=== PATIENT | male | born 1980 | race Caucasian/White ===

== ENCOUNTER 2022-06-06 12:22 | Emergency (ER) | payer OTHER ==
[2022-06-06 12:34] VITALS: RESP 16
--- NOTE | 2022-06-06 12:58 | ED ---
Fall HPI - General Chief Complaint: Fall Stated Complaint: fall, head injury Time Seen by Provider: 06/06/22 12:40 Source: patient, family, RN notes reviewed Mode of arrival: wheelchair Limitations: no limitations - History of Present Illness Initial Comments: This a 42-year-old male presents emergency Department with chief complaint of fall. Patient states he was proximal 4 feet up on a ladder and he fell backwards then shortly struck his head on. Patient is up-to-date on his tetanus. Patient is abrasion, laceration to his scalp. Patient has no active bleeding. Denies any neck, back pain no lower extremity pain. She has no upper extremity symptoms. Patient denies loss conscious he states he felt dazed does complain of a headache, slight nausea currently no vomiting. Denies any focal weakness. - Related Data Allergies Allergy/AdvReac Type Severity Reaction Status Date / Time No Known Allergies Allergy Verified 06/06/22 12:34 Review of Systems ROS Statement: Those systems with pertinent positive or pertinent negative responses have been documented in the HPI. ROS Other: All systems not noted in ROS Statement are negative. Past Medical History Past Medical History: No Reported History History of Any Multi-Drug Resistant Organisms: None Reported Past Surgical History: No Surgical Hx Reported Past Psychological History: No Psychological Hx Reported Smoking Status: Former smoker Past Alcohol Use History: Occasional Past Drug Use History: None Reported General Exam Limitations: no limitations General appearance: alert, in no apparent distress Head exam: Present: atraumatic, normocephalic. Absent: normal inspection (Posterior scalp abrasion, no deep laceration.) Eye exam: Present: normal appearance, PERRL, EOMI. Absent: scleral icterus, conjunctival injection, periorbital swelling ENT exam: Present: normal exam, normal oropharynx, mucous membranes moist Neck exam: Present: normal inspection, full ROM. Absent: tenderness, meningismus, lymphadenopathy Respiratory exam: Present: normal lung sounds bilaterally. Absent: respiratory distress, wheezes, rales, rhonchi, stridor Cardiovascular Exam: Present: regular rate, normal rhythm, normal heart sounds. Absent: systolic murmur, diastolic murmur, rubs, gallop, clicks Neurological exam: Present: alert, oriented X3 Skin exam: Present: warm, dry, intact, normal color. Absent: rash Course Vital Signs 06/06/22 12:30 Temperature 98 F Pulse Rate 92 Respiratory 16 Rate Blood Pressure 119/71 O2 Sat by Pulse 99 Oximetry - Reevaluation(s) Reevaluation #1: 06/06/22 14:19 I did discuss the case with trauma surgeon at [facility] Dr. Gandhi who accepts transfer. Medical Decision Making - Medical Decision Making 42-year-old male presented emergency department for a fall. CT interpreted by me and radiology shows evidence of skull fracture, subarachnoid hemorrhage. Patient is neurologically intact with GCS 15. Patient will be transferred to [facility] for neurosurgical evaluation. - Lab Data Result diagrams: 06/06/22 14:20 Lab Results 06/06/22 Range/Units 14:20 WBC 15.8 H (3.8-10.6) k/uL RBC 5.39 (4.30-5.90) m/uL Hgb 16.9 (13.0-17.5) gm/dL Hct 47.6 (39.0-53.0) % MCV 88.5 (80.0-100.0) fL MCH 31.4 (25.0-35.0) pg MCHC 35.6 (31.0-37.0) g/dL RDW 11.9 (11.5-15.5) % Plt Count 207 (150-450) k/uL MPV 7.8 Neutrophils % 85 % Lymphocytes % 10 % Monocytes % 4 % Eosinophils % 1 % Basophils % 0 % Neutrophils # 13.5 H (1.3-7.7) k/uL Lymphocytes # 1.5 (1.0-4.8) k/uL Monocytes # 0.6 (0-1.0) k/uL Eosinophils # 0.1 (0-0.7) k/uL Basophils # 0.1 (0-0.2) k/uL Disposition Clinical Impression: Fall, Skull fracture, Subarachnoid hemorrhage Disposition: OTHER INSTITUTION NOT DEFINED Condition: Fair Referrals: Deana Cid DO [Primary Care Provider] - 1-2 days Time of Disposition: 14:11 - Out of Hospital Transfer - Req. Specs Out of Hospital Transfer - Requested Specifics: Other Emergency Center ([facility])
--- NOTE | 2022-06-06 13:32 | CT ---
EXAMINATION TYPE: CT brain cspine wo con CT DLP: 1535.5 mGycm, Automated exposure control for dose reduction was used. DATE OF EXAM: 06/06/2022 1:16 PM COMPARISON: None. CLINICAL INDICATION:Male, 42 years old with history of pain; Fell off ladder, back of head trauma. No LOC TECHNIQUE: Brain: Multiple axial CT images of the brain were obtained without IV contrast. Cspine: Axial CT images from the skull base to the inferior aspect of T2 we obtained without intraven ous contrast. Coronal and sagittal reformatted images were also reviewed. FINDINGS: Brain: Extra-axial spaces: Subtle high density suspected blood products within the sulci most pronounced ant eriorly on sagittal imaging involving the frontal lobe on the right. Ventricular system: Within normal limits Cerebral parenchyma: No acute intraparenchymal hemorrhage or mass effect. The alaniz-white junction is well differentiated. Cerebellum: Unremarkable. Mass effect: No evidence of midline shift. Intracranial vasculature: unremarkable Soft tissues: Left posterior scalp edema. Calvarium/osseous structures: Left posterior occiput fracture without depression. Paranasal sinuses and mastoid air cells: Clear. Visualized orbits: Orbital contents are intact. Cervical spine: Fracture: None. Osseous structures: Unremarkable Vertebral alignment: Within normal limits. Spinal canal/Neural Foramina: No evidence of significant spinal canal narrowing. No evidence for sign ificant neural foraminal stenosis. Neck soft tissues: Prevertebral soft tissues are within normal limits. Other: The airway is patent. The lung apices are clear. IMPRESSION: 1. Left posterior skull fracture with no displacement or depression. There is scattered subtle subar achnoid hemorrhage most pronounced anteriorly. No midline shift. 2. No evidence of cervical spine fracture. 3. Mild left posterior scalp edema.
[2022-06-06] MEDS ORDERED: ONDANSETRON 4 MG/2 ML VIAL IVP STA (14:16)
[2022-06-06] MEDS ORDERED: HYDROmorphone 0.5 MG/0.5 ML SYRINGE IVP STA (14:16)
[2022-06-06 14:23] LABS: Basophils # (A) 0.1 k/uL (0-0.2); Basophils % (A) 0 %; Eosinophils # (A) 0.1 k/uL (0-0.7); Eosinophils % (A) 1 %; HCT 47.6 % (39.0-53.0); HGB 16.9 gm/dL (13.0-17.5); Lymphocytes # (A) 1.5 k/uL (1.0-4.8); Lymphocytes % (A) 10 %; MCH 31.4 pg (25.0-35.0); MCHC 35.6 g/dL (31.0-37.0); MCV 88.5 fL (80.0-100.0); Mean Platelet Volume 7.8; Monocytes # (A) 0.6 k/uL (0-1.0); Monocytes % (A) 4 %; Neutrophils # (A) 13.5 k/uL (1.3-7.7); Neutrophils % (A) 85 %; Platelet Count 207 k/uL (150-450); RBC 5.39 m/uL (4.30-5.90); RDW 11.9 % (11.5-15.5); WBC 15.8 k/uL (3.8-10.6)
[2022-06-06 14:50] VITALS: BP 115/68; PULSE 84; TEMP 98.1
== END 2022-06-06 14:51 | disposition other institution (70) ==
LOC: EC 12:22
DX: S02.91XA Unspecified fracture of skull, initial encounter for closed fracture (principal); I60.9 Nontraumatic subarachnoid hemorrhage, unspecified; Z87.891 Personal history of nicotine dependence; W11.XXXA Fall on and from ladder, initial encounter; Y92.009 Unspecified place in unspecified non-institutional (private) residence as the place of occurrence of the external cause
CPT/HCPCS: 36415; 85025; 72125; 70450; 99284; 96374; 96375; J2405; J1170

== ENCOUNTER → 2022-06-25 | Outpatient (CLI) | payer OTHER ==
--- NOTE | 2022-06-25 14:42 | XR ---
EXAM TYPE: LUMBAR SPINE X RAY SERIES COMPARISON: NONE HISTORY: Pain TECHNIQUE: 3 views are submitted. FINDINGS: Alignment is anatomic. The pedicles are intact. The transverse processes are intact. There is no s pondylolysis or spondylolisthesis. Mild diffuse osteopenia. IMPRESSION: 1. No acute process. I'll diffuse osteopenia.
--- NOTE | 2022-06-25 14:43 | XR ---
EXAMINATION TYPE: XR pelvis AP view DATE OF EXAM: 06/25/2022 COMPARISON: NONE HISTORY: Pain The osseous structures are intact and the joint spaces are preserved. No acute fracture is seen. Vi sualized bowel gas pattern is nonspecific. Calcification left pelvis likely vascular. IMPRESSION: 1. No acute fracture.
== END | disposition home or self-care (01) ==
LOC: RADXRYALE 13:40
PROVIDERS: ATTEND Nurse Practitioner
DX: M85.88 Other specified disorders of bone density and structure, other site (principal)
CPT/HCPCS: 72100; 72170

== ENCOUNTER → 2023-02-05 | Outpatient (CLI) | payer OTHER ==
--- NOTE | 2023-02-05 18:18 | P.SLEEP ---
History of Present Illness DATE: 02/05/2023 CONSULTATION/NEW PATIENT EVALUATION HISTORY OF PRESENT ILLNESS/SLEEP-WAKE EVALUATION: 42 year old gentleman had been evaluated in the sleep center for possible obstructive sleep apnea hypopnea syndrome. SLEEP SCHEDULE: Usually sleep schedule from 10 PM to 6 AM on weekdays and from 11 PM to 9 AM on weekend. FALLING ASLEEP: No problems with falling asleep. DURING SLEEP: Patient snores, wakes up from sleep several times with one episode of nocturia. No history of hypnogogical hallucinations, sleep paralysis, or cataplexy. DURING THE DAY/WAKE STATE: In the morning patient wake up tired, has difficulties to put pretension, has problems with memory and concentration. [place] sleepiness scale is increased to 13. Usually patient doesn't take naps. PAST MEDICAL HISTORY: Hyperlipidemia, status post traumatic brain injury and concussion. PAST SURGICAL HISTORY: None MEDICATIONS: None. SOCIAL HISTORY: Negative for smoking, alcohol consumption occasional. FAMILY HISTORY: Hypertension, stroke. REVIEW OF SYSTEMS: Snoring, awakenings from sleep, sleepiness during the day. No fevers. No double vision. No recent chest pain. No shortness of breath. No abdominal pain. No bleeding episodes. No blood in urine. No seizure episodes. PHYSICAL EXAMINATION: GENERAL: A pleasant patient without any distress. VITAL SIGNS: BP 123/71 , HR 58 , RR 12 , weight 172.4 pounds, height 5 foot 7 inches, body mass index 26.9 . HEENT: PERRLA, EOMI. Evaluation of oropharynx showed tongue protrudes midline, low position of soft palate Mallampati 3. NECK: Supple. No JVD. Thyroid is not palpable. 15.25 inches in circumference. LUNGS: Clear to percussion and to auscultation. Good air exchange. No wheezing or rhonchi. HEART: S1, S2 regular. No murmurs, gallops or rubs. ABDOMEN: Soft and nontender. Bowel sounds are present. No organomegaly appreciated. EXTREMITIES: No clubbing or cyanosis. CRITICAL CARE REGISTERED NURSE: Awake, alert, and oriented x3. Cranial nerves 2 to 7 intact. There is no fasciculation or atrophy noted. No focal deficits observed. ASSESSMENT: 1. Snoring, awakenings from sleep, low position of soft palate Mallampati 3, sleepiness [place] sleepiness scale increased to 13. Obstructive sleep apnea hypopnea syndrome. 2. Hyperlipidemia. 3. Status post traumatic brain injury with concussion in 2021. PLAN: 1. Polysomnography for evaluation of patient's breathing during sleep. 2. Following plan after reading sleep study. 3. Preferable position during sleep on the side. 4. No driving if patient feels any sleepiness. Patient is aware of civil and criminal liability for unsafe driving. 5. Sleep hygiene with regular sleep time for at least 7.5-8 hours. Thank you very much for referring this patient for consultation. Sincerely, Vimal Smith MD, PhD, FAASM. Diplomat of [employer], Sleep Medicine Board by [employer] of [place] [facility] [place] Past Medical History Past Medical History: No Reported History History of Any Multi-Drug Resistant Organisms: None Reported Past Surgical History: No Surgical Hx Reported Past Psychological History: No Psychological Hx Reported Smoking Status: Former smoker Past Alcohol Use History: Occasional Past Drug Use History: None Reported Medications and Allergies Allergies Allergy/AdvReac Type Severity Reaction Status Date / Time No Known Allergies Allergy Verified 06/06/22 12:34 Sleep Note - Sleep Note Sleep Note: Temperature: Pulse Rate: Respiratory Rate: Blood Pressure: SpO2: Height: Weight: BMI: Neck Circumference:
== END ==
LOC: 3 N SLEEP 15:04
PROVIDERS: ATTEND Internal Medicine
DX: G47.33 Obstructive sleep apnea (adult) (pediatric) (principal); E78.5 Hyperlipidemia, unspecified; Z98.890 Other specified postprocedural states
CPT/HCPCS: 99211

== ENCOUNTER 2023-03-12 18:53 | Outpatient (CLI) | payer OTHER | END 2023-03-13 05:30 | disposition home or self-care (01) | LOC: 3 N SLEEP 18:53 | PROVIDERS: ATTEND Internal Medicine | DX: G47.33 Obstructive sleep apnea (adult) (pediatric) (principal) | CPT/HCPCS: 95810 ==